=== PATIENT | male | born 1990 | race Caucasian/White ===

== ENCOUNTER 2016-10-08 10:03 | Emergency (ER) | payer BC ==
[2016-10-08 10:19] VITALS: BP 121/67
--- NOTE | 2016-10-08 11:15 | UC ---
Throat Pain/Nasal Hemant HPI - HPI Summary HPI Summary: ONE WEEK OF RUNNY NOSE SNEEZING PRESSURE IN EARS, TWO DAYS OF FOREHEAD FACIAL PAIN SORE THROAT. NO FEVER - History of Current Complaint Chief Complaint: UCGeneralIllness Stated Complaint: SORE THROAT/RUNNY NOSE Time Seen by Provider: 10/08/16 10:33 Hx Obtained From: Patient Onset/Duration: Gradual Onset, Lasting Weeks, Worse Since - TWO DAYS Severity: Moderate Pain Intensity: 0 Pain Scale Used: 0-10 Numeric Cough: Nonproductive Associated Signs & Symptoms: Positive: Sinus Discomfort, Nasal Discharge - Allergies/Home Medications Allergies/Adverse Reactions: Allergies Allergy/AdvReac Type Severity Reaction Status Date / Time No Known Allergies Allergy Verified 10/08/16 10:19 Home Medications: Home Medications Lisinopril [Prinivil TAB 20 mg] 20 mg PO DAILY 10/08/16 [History Confirmed 10/08] Omeprazole [Prilosec] 20 mg PO DAILY 10/08/16 [History Confirmed 10/08/16] PMH/Surg Hx/FS Hx/Imm Hx Previously Healthy: Yes Cardiovascular History Of: Reports: Hypertension - Surgical History Surgical History: None - Family History Known Family History: Negative: Respiratory Disease - Social History Occupation: Employed Full-time Lives: With Family Alcohol Use: None Substance Use Type: None Smoking Status (MU): Never Smoked Tobacco Review of Systems Constitutional: Negative Skin: Negative Eyes: Negative ENT: Sore Throat, Ear Ache, Nasal Discharge Respiratory: Negative Cardiovascular: Negative Gastrointestinal: Negative Genitourinary: Negative Motor: Negative Neurovascular: Negative Musculoskeletal: Negative Neurological: Negative Psychological: Negative All Other Systems Reviewed And Are Negative: Yes Physical Exam Triage Information Reviewed: Yes Appearance: Well-Appearing, No Pain Distress, Well-Nourished Vital Signs: Initial Vital Signs Temp 98.5 F 10/08/16 10:14 Pulse 88 10/08/16 10:14 Resp 16 10/08/16 10:14 BP 121/67 10/08/16 10:14 Pulse Ox 99 10/08/16 10:14 Vital Signs Reviewed: Yes Eye Exam: Normal ENT: Positive: Hearing grossly normal, Pharynx normal, Nasal congestion, TM bulging, TM dull Dental Exam: Normal Neck exam: Normal Neck: Positive: Supple, Nontender, No Lymphadenopathy Respiratory Exam: Normal Respiratory: Positive: Chest non-tender, Lungs clear, Normal breath sounds, No respiratory distress, No accessory muscle use Cardiovascular Exam: Normal Cardiovascular: Positive: RRR, No Murmur, Pulses Normal Abdominal Exam: Normal Abdomen Description: Positive: Nontender, No Organomegaly Musculoskeletal Exam: Normal Musculoskeletal: Positive: Strength Intact, ROM Intact Neurological Exam: Normal Psychological Exam: Normal Psychological: Positive: Normal Response To Family Skin Exam: Normal Throat Pain/Nasal Course/Dx - Differential Dx/Diagnosis Differential Diagnosis/HQI/PQRI: Sinusitis, URI Provider Diagnoses: SINUSITIS Discharge - Discharge Plan Condition: Stable Disposition: HOME Prescriptions: Amoxicillin/Clavulanate TAB* [Augmentin TAB 875*] 875 mg PO BID #20 tab Patient Education Materials: Sinusitis (ED) Forms: *Work Release Referrals: Michael Montenegro PA [Physician [employer]] -
== END 2016-10-08 10:56 | disposition home or self-care (01) ==
LOC: UCCORT 10:03
DX: J32.9 Chronic sinusitis, unspecified (principal); I10 Essential (primary) hypertension
CPT/HCPCS: 99202; G0463